=== PATIENT | male | born 2000 | race Caucasian/White ===

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

== ENCOUNTER 2018-01-15 09:46 | Outpatient (CLI) | payer BC ==
--- NOTE | 2018-01-15 10:20 | RAD ---
LUMBAR SPINE TWO VIEWS: History: Back pain. Follow up L1 fracture. Comparison: CT lumbar spine, 12-20-17. That exam revealed mild anterior wedge compression of L1 verteb ra with mild loss of anterior height. FINDINGS: Mild anterior wedge compression of the L1 vertebra is again noted. Loss of anterior height estimated in the 10-20% range, unchanged since the CT of 12-20-17. The other lumbar vertebrae maintain normal height and alignment. Disc spaces are preserved. No eviden ce of spondylolisthesis or spondylosis. IMPRESSION: Anterior wedge compression fracture at L1 appears stable when compared to the prior CT. POS: [facility]
== END 2018-01-15 09:47 | disposition home or self-care (01) ==
LOC: TBSIIMAG 09:46
PROVIDERS: ATTEND Neurological Surgery
DX: M48.56XA Collapsed vertebra, not elsewhere classified, lumbar region, initial encounter for fracture (principal); S32.010D Wedge compression fracture of first lumbar vertebra, subsequent encounter for fracture with routine healing
CPT/HCPCS: 72100

== ENCOUNTER 2018-01-29 08:43 | Outpatient (CLI) | payer BC ==
--- NOTE | 2018-01-29 10:28 | RAD ---
LUMBAR SPINE TWO VIEWS: HISTORY: A 17-year-old male with a history of follow-up L1 fracture. COMPARISON: 01/15/2018 FINDINGS: Again noted is a mild superior-anterior wedge compression fracture of L1, stable from prior study. N o evidence for overt retropulsion. No other significant acute process. IMPRESSION: Stable mild compression fracture of the superior aspect of L1, unchanged from prior study. POS: [facility]
== END 2018-01-29 08:44 | disposition home or self-care (01) ==
LOC: TBSIIMAG 08:43
PROVIDERS: ATTEND Neurological Surgery
DX: M48.56XA Collapsed vertebra, not elsewhere classified, lumbar region, initial encounter for fracture (principal)
CPT/HCPCS: 72100